=== PATIENT | male | born 1985 | race Caucasian/White ===

== ENCOUNTER → 2017-12-31 | Outpatient (REF) | payer OTHER ==
[2017-12-31 17:37] LABS: BACTERIA, URINE AUTO NEGATIVE (NEGATIVE); RBC, URINE AUTO 1 /HPF (0-3); SQUAMOUS EPITHELIAL CELL UR AU 0 /HPF (0-6); WBC, URINE AUTO 0 /HPF (0-3)
== END ==
LOC: M LAB REF 16:44
DX: R31.9 Hematuria, unspecified (principal)

== ENCOUNTER → 2020-10-01 | Outpatient (REF) | payer OTHER | LOC: M LAB REF 11:20 | PROVIDERS: ATTEND Family Medicine | DX: B35.1 Tinea unguium (principal) ==

== ENCOUNTER → 2023-06-03 | Outpatient (REF) | payer BC, OTHER | LOC: M SMT 12:53 | PROVIDERS: ATTEND Urology | DX: Z30.2 Encounter for sterilization (principal) ==